=== PATIENT | female | born 1985 | race Caucasian/White ===

== ENCOUNTER 2022-11-18 16:32 | Emergency (ER) | payer BC, SELFPAY ==
[2022-11-18 16:34] VITALS: BP 158/110; PULSE 105; RESP 22; TEMP 37.2; O2SAT 98; BMI 41.9
--- NOTE | 2022-11-18 17:01 | EX.ED.VIS.UR ---
HPI HPI - URI History of Present Illness Chief Complaint: Sore Throat Informant: patient Onset/Context/Timing Onset: Yesterday Context: Gradual Onset Timing: Continuous Quality: sore Location: throat Current Severity: Mild Maximum Severity: Mild Worsened by: Swallowing Associated Symptoms Associated Symptoms: Positive for Nasal Congestion and Myalgias (Much better after taking Aleve); Negative for Headache Narrative Narrative: Patient feeling achy all over, having runny nose, congestion, minor cough, sore throat, occasional earache. No fever she has checked multiple times. 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 She states her significant other had similar symptoms about a week or 2 ago, he is present and offers the history that he went to his doctor and they saw some red spots in his throat and they prescribed him amoxicillin. ROS ROS ED Constitutional Constitutional ED: Reports malaise; Denies chills or fever(s) ENT ENT ED: Reports ear pain bilateral, nasal congestion, rhinorrhea and sore throat Cardiovascular Cardiovascular: Denies chest pain or palpitations Respiratory/Chest Respiratory/Chest: Reports cough; Denies dyspnea Gastrointestinal Gastrointestinal: Denies abdominal pain, diarrhea, nausea or vomiting Genitourinary Genitourinary ED: Denies dysuria or hematuria Musculoskeletal Musculoskeletal: Reports myalgias; Denies neck pain Integumentary Denies abscess or rash Neurologic Neurologic: Denies headache(s), paresthesias or weakness Psychiatric Psychiatric: Denies depression or suicidal thoughts Endocrine Endocrinology: Denies polydipsia or polyuria PFSH PFSH Medical History no medical history no medical history Allergy/AdvReac Type Severity Reaction Status Date / Time No Known Allergies Allergy Verified 11/18/22 16:34 Social History Smoking Status: Never smoker EXAM Physical Exam Const Vital Signs: 11/18/22 16:34 11/18/22 16:55 Temperature 99 F Temperature Source Temporal Pulse Rate 105 H Respiratory Rate 22 H Respiratory Pattern Normal Blood Pressure 158/110 H Blood Pressure Mean 126 Pulse Ox 98 Oxygen Delivery Method Room Air Positive well nourished and well developed General Appearance ED: well developed and NAD HEENT Reports EAC's normal, TM's clear and moist mucous membranes normocephalic and atraumatic Face and Sinus: Negative for sinus tenderness Tympanic Membrane ED: Yes TM's clear Mouth ED: No muffled voice and No trismus Mouth: No muffled voice and No trismus Throat: posterior oropharynx normal; Negative for posterior oropharynx abnormal Eyes PERRL and EOMs intact bilaterally Neck no lymphadenopathy, supple and no meningeal signs Neck Narrative: Patient states palpation is somewhat sore in the anterior submandibular area and feels like things are a little swollen on the inside but I feel nothing objective although exam may be somewhat limited due to obesity. Resp normal respiratory effort and clear to auscultation bilaterally Cardio no murmurs Cardio Narrative: Mildly tachycardic Rate: regular rate Rhythm: regular rhythm GI non-tender and non-distended Auscultation: normoactive bowel sounds Palpation: soft Back/Spine no CVA tenderness and normal ROM Extremity normal to inspection and full ROM Neuro oriented x3, CN's II-XII intact bilaterally and no sensory deficits noted Sensorium / Orientation: alert Motor Exam: strength 5/5 throughout Psych mental status grossly normal Skin Lesions: no lesions Rashes: no rashes MDM MDM MDM Narrative Medical decision making narrative: Obtained a rapid strep on this patient it is negative. I also sent for rapid influenza, the lab canceled it and they did a COVID/flu combination test anyway, both are negative. Patient is reassured given a dose of Decadron for her symptoms/throat, this is likely viral in etiology, supportive care advised and she will be offered a work note. I do not think she is dealing with mononucleosis here since her significant other had the same symptoms that lasted a week or less. Not likely to be pneumonia with her pulse ox 98% on room air, clear lungs, and no dyspnea. Discussed reasons to return to the ER. Discharge Plan Triage Chief Complaint: Sore Throat ED Provider: Fernando Angel Dx/Rx/DC Orders Clinical Impression: Viral URI with cough Instructions: ED URI, Viral, No Abx (Adult) Stand Alone Forms: ED Work / School Excuse Primary Care Provider: Care Physician,No Primary Referrals: Doctor,Your [Non-Staff] - 1 Week if not improving Disposition Disposition: Home, Self Care
[2022-11-18] MEDS: dexAMETHasone 4 MG Tablet 8 MG PO (18:26)
== END 2022-11-18 18:28 | disposition home or self-care (01) ==
PROVIDERS: Emergency Provider Emergency Medicine; Visit Provider Emergency Medicine
DX: J06.9 Acute upper respiratory infection, unspecified (principal); R05.9 Cough, unspecified
CPT/HCPCS: 87428; 87880; 99283